=== PATIENT | female | born 1990 | race Two or more races ===

== ENCOUNTER 2016-12-24 09:13 | Emergency (ER) | payer MEDICAID ==
--- NOTE | 2016-12-24 11:14 | ER Document Report ---
ED ENT - General Time seen by provider: 11:05 Mode of Arrival: Ambulatory Information source: Patient TRAVEL OUTSIDE OF THE [place] IN LAST 30 DAYS: No - HPI Onset: Other - see HPI notes Associated symptoms: Congestion, Cough, Headache, Sore throat - General Chief Complaint: Pain All Over Stated Complaint: COUGH AND SORE THROAT Notes: Patient is a 26-year-old female presenting to the emergency department with complaints of cold-like symptoms. Patient primarily speaks Tuvaluan and only small amounts of Mexican so the history of present illness, past medical history and review of systems is limited. Patient states that she has a headache, sore throat, and some mild ear pain. Patient also has a slight cough with yellow and green sputum. Patient states that it hurts to swallow food or liquid. Patient also has some congestion. Patient complains of some diarrhea x3 over the last 2 days. Patient has no known allergies. (MERLIN SWARTZ) - Related Data Allergies/Adverse Reactions: No Known Allergies Allergy (Verified 12/24/16 09:32) Past Medical History - General Information source: Patient - Social History Smoking Status: Never Smoker Cigarette use (# per day): No Chew tobacco use (# tins/day): No Frequency of alcohol use: None Drug Abuse: None Family History: None Patient has suicidal ideation: No Patient has homicidal ideation: No - Immunizations Hx Diphtheria, Pertussis, Tetanus Vaccination: Yes Review of Systems - Review of Systems Constitutional: No symptoms reported EENT: See HPI, Nose congestion, Throat pain Cardiovascular: No symptoms reported Respiratory: See HPI, Cough Gastrointestinal: No symptoms reported Genitourinary: No symptoms reported Female Genitourinary: No symptoms reported Musculoskeletal: No symptoms reported Skin: No symptoms reported Hematologic/Lymphatic: No symptoms reported Neurological/Psychological: No symptoms reported -: Yes All other systems reviewed and negative Physical Exam - Vital signs Interpretation: Normal - General General appearance: Appears well, Alert In distress: Mild - HEENT Head: Normocephalic, Atraumatic Eyes: Normal Pupils: PERRL Ears: Normal External canal: Normal Tympanic membrane: Normal Nasal: Clear rhinorrhea Mucous membranes: Moist Pharynx: Tonsillar hypertrophy - Bilaterally and symmetrical - Respiratory Respiratory status: No respiratory distress Chest status: Nontender Breath sounds: Normal Chest palpation: Normal - Cardiovascular Rhythm: Regular Heart sounds: Normal auscultation Murmur: No - Abdominal Inspection: Normal Distension: No distension Bowel sounds: Normal Tenderness: Nontender Organomegaly: No organomegaly - Back Back: Normal, Nontender - Extremities General upper extremity: Normal inspection, Normal ROM, Normal strength General lower extremity: Normal inspection, Normal ROM, Normal strength - Neurological Neuro grossly intact: Yes Cognition: Normal Orientation: AAOx4 [place] Coma Scale Eye Opening: Spontaneous [place] Coma Scale Verbal: Oriented Adarsh Coma Scale Motor: Obeys Commands Adarsh Coma Scale Total: 15 Speech: Normal - Psychological Associated symptoms: Normal affect, Normal mood - Skin Skin Temperature: Warm Skin Moisture: Dry - Vital signs Vitals: Resp 16 12/24/16 10:08 (PRIMITIVO SMITH) (MERLIN SWARTZ) Course - Re-evaluation Re-evalutation: 12/24/16 11:28 Patient presents complaining of 4 days of cough, sore throat, subjective fevers , and 2 days of diarrhea. She indicates to swallow food. She has no other medical problems. On exam, vital signs stable. Patient will nonoriented. Chest sounds clear and equal bilaterally. No acute distress. Plan to discharge home with symptomatic management for viral syndrome/pharyngitis. (PRIMITIVO SMITH) - Vital Signs Vital signs: Temp Pulse Resp BP Pulse Ox 98 F 88 16 138/72 H 98 12/24/16 11:29 12/24/16 11:29 12/24/16 11:29 12/24/16 11:29 12/24/16 11:29 (PRIMITIVO SMITH) (MERLIN SWARTZ) Discharge - Discharge Clinical Impression: Viral syndrome Pharyngitis Qualifiers: Pharyngitis/tonsillitis etiology: unspecified etiology Qualified Code(s): J02.9 - Acute pharyngitis, unspecified Instructions: Viral Syndrome ([facility]) Additional Instructions: Drink plenty of fluids to stay well hydrated. You can use salt water gargles and warm drinks with honey and lemon for sore throat relief. Also Tylenol and Motrin for pain. Follow-up the primary physician. Return for fevers not controlled by Tylenol or Motrin, vomiting so not to keep down fluids, difficulty breathing, or other worsening or concerning symptoms. Sore Throat Sore throats may be caused by viruses, bacteria, or fungi. Most are due to a virus, and must get better on their own. Bacterial sore throats, particularly those due to "strep," need treatment with antibiotics. To relieve symptoms, take acetaminophen for pain. Sip clear liquids frequently, or eat popsicles or ice chips. Anesthetic sprays or lozenges may help. Make sure the air in the room is not too dry. Avoid using decongestants or antihistamines. Call the doctor if there is no improvement in two days, or if you have difficulty breathing, increasing throat pain, high fever, rash, or frequent vomiting. Prescriptions: Ibuprofen [Motrin 600 Mg Tablet] 600 mg PO TID #15 tablet Forms: Return to Work Print Language: Tuvaluan [place]o Attestation: 12/24/16 11:23 I personally performed the services described in the documentation, reviewed and edited the documentation which was dictated to the scribe in my presence, and it accurately records my words and actions. (PRIMITIVO SMITH) Scribe Documentation - Scribe Written by Gil:: Merlin Swartz 12/24/16 11:45 acting as scribe for :: Roberts
[2016-12-24 11:30] VITALS: BP 138/72
== END 2016-12-24 11:30 | disposition home or self-care (01) ==
LOC: ER 09:13
DX: J02.9 Acute pharyngitis, unspecified (principal); B34.9 Viral infection, unspecified; R05 Cough; R51 Headache; H92.09 Otalgia, unspecified ear; R19.7 Diarrhea, unspecified; R09.81 Nasal congestion; J34.89 Other specified disorders of nose and nasal sinuses; J35.1 Hypertrophy of tonsils
CPT/HCPCS: 87070; 87077; 87880; 99283

== ENCOUNTER → 2017-03-05 | Outpatient (CLI) | payer MEDICAID | LOC: RAD 08:23 | PROVIDERS: ATTEND Surgery | DX: K42.9 Umbilical hernia without obstruction or gangrene (principal); R10.9 Unspecified abdominal pain | CPT/HCPCS: 74177; 82565 ==

== ENCOUNTER 2018-06-17 17:17 | Emergency (ER) | payer MEDICAID ==
[2018-06-17 17:28] VITALS: BP 139/92
--- NOTE | 2018-06-17 18:45 | ER Document Report ---
ED Medical Screen (RME) - General Chief Complaint: Incision Drainage Stated Complaint: PAIN,DRAINAGE AT SURGICAL SITE Time Seen by Provider: 06/17/18 18:42 Mode of Arrival: Ambulatory Information source: Patient TRAVEL OUTSIDE OF THE [place] IN LAST 30 DAYS: No - HPI Patient complains to provider of: pain, drainage from incision site Onset: Yesterday - pt states (through interpretor) that she has developed pain, redness, and drainage from abdominal surgical incision site done recently - Related Data Allergies/Adverse Reactions: No Known Allergies Allergy (Verified 12/24/16 09:32) Past Medical History - Social History Family history: Reviewed & Not Pertinent Renal/ Medical History: Denies: Hx Peritoneal Dialysis - Immunizations Hx Diphtheria, Pertussis, Tetanus Vaccination: Yes Physical Exam - Vital signs Vitals: Temp Pulse Resp BP Pulse Ox 99.7 F 99 22 H 139/92 H 96 06/17/18 17:26 06/17/18 17:26 06/17/18 17:26 06/17/18 17:26 06/17/18 17:26 Course - Vital Signs Vital signs: Temp Pulse Resp BP Pulse Ox 99.7 F 99 22 H 139/92 H 96 06/17/18 17:26 06/17/18 17:26 06/17/18 17:26 06/17/18 17:26 06/17/18 17:26 Doctor's Discharge - Discharge Referrals: MANDIE MORALES MD [Primary Care Provider] - Follow up as needed
[2018-06-17 19:57] LABS: ABSOLUTE EOSINOPHILS # (AUTO) 0.1 10^3/uL (0.0-0.6); ABSOLUTE LYMPHOCYTES (AUTO) 2.3 10^3/uL (0.5-4.7); ABSOLUTE MONOCYTES (AUTO) 0.6 10^3/uL (0.1-1.4); ABSOLUTE NEUT (AUTO) 7.4 10^3/uL (1.7-8.2); BASOPHILS % (AUTO) 0.4 % (0-2); EOSINOPHILS % (AUTO) 1.3 % (0-6); HEMATOCRIT 36.8 % (36.0-47.0); HEMOGLOBIN 12.4 g/dL (12.0-15.5); LYMPHOCYTES % (AUTO) 21.9 % (13-45); MEAN CORPUSCULAR HEMOGLOBIN 28.5 pg (27.0-33.4); MEAN CORPUSCULAR HGB CONC 33.7 g/dL (32.0-36.0); MEAN CORPUSCULAR VOLUME 85 fl (80-97); MONOCYTES % (AUTO) 5.8 % (3-13); PLATELET COUNT 455 10^3/uL (150-450); RED BLOOD COUNT 4.35 10^6/uL (3.72-5.28); RED CELL DISTRIBUTION WIDTH 13.2 % (11.5-14.0); SEGMENTED NEUTROPHILS % (AUTO) 70.6 % (42-78); TOTAL CELLS COUNTED % (AUTO) 100 %; WHITE BLOOD COUNT 10.6 10^3/uL (4.0-10.5)
[2018-06-17 20:15] LABS: ALANINE AMINOTRANSFERASE 21 U/L (9-52); ALBUMIN 3.8 g/dL (3.5-5.0); ALKALINE PHOSPHATASE 80 U/L (38-126); ANION GAP 15 (5-19); ASPARTATE AMINO TRANSFERASE 17 U/L (14-36); BILIRUBIN,DIRECT 0.3 mg/dL (0.0-0.4); BILIRUBIN,TOTAL 0.3 mg/dL (0.2-1.3); BLOOD UREA NITROGEN 14 mg/dL (7-20); CALCIUM 9.4 mg/dL (8.4-10.2); CARBON DIOXIDE 28 mmol/L (22-30); CHLORIDE 100 mmol/L (98-107); GLUCOSE 86 mg/dL (75-110); POTASSIUM 4.4 mmol/L (3.6-5.0); SODIUM 143.2 mmol/L (137-145); TOTAL PROTEIN 7.2 g/dL (6.3-8.2)
== END 2018-06-17 20:38 | disposition left against medical advice (07) ==
LOC: ER 17:17
DX: Z48.89 Encounter for other specified surgical aftercare (principal); Z53.20 Procedure and treatment not carried out because of patient's decision for unspecified reasons
CPT/HCPCS: 36415; 80053; 85025; 99281